=== PATIENT | female | born 1980 | race Caucasian/White ===

== ENCOUNTER 2017-01-24 14:43 | Emergency (ER) | payer MEDICAID ==
[2017-01-24] MEDS ORDERED: IPRATROPIUM/ALBUTEROL 3 ML DEYVIAL ONE (15:13)
--- NOTE | 2017-01-24 15:17 | EDPHY ---
H & P Stated Complaint: lower throat pain breathing and swalling - Personal History LMP (Females 10-55): 1-7 Days Ago Current Tetanus/Diphtheria Vaccine: Yes Current Tetanus Diphtheria and Acellular Pertussis (TDAP): Yes Tetanus Vaccine Date: 2013 - Medical/Surgical History Hx Asthma: No Hx Chronic Respiratory Disease: No Hx Diabetes: No Hx Cardiac Disease: No Hx Renal Disease: No Hx Cirrhosis: No Hx Alcoholism: No Hx HIV/AIDS: No Hx Splenectomy or Spleen Trauma: No Other PMH: PMH:HYPERPARATHYROID,PREV HEAD INJURY. UNILATERAL VESTIBULAR DYSFUNCTION. SINUS SURGERY, lymphacytic colitis - Social History Smoking Status: Never smoked Time Seen by Provider: 01/24/17 15:04 HPI/ROS: CHIEF COMPLAINT: "My throat hurts and I can't breath" HISTORY OF PRESENT ILLNESS: 36-year-old female with no history of chronic respiratory issues complaining 1 day of odynophagia, dyspnea. She has describes the pain in her throat/neck is feeling is if it is in the more cephalad portion of her throat. She went to urgent care facility today and was given prescription for antibiotics told symptoms may be secondary to epiglottitis an told to go to the ER for evaluation. She arrives via private vehicle stating that after going to the Urgent Care she ran some errands, noticed that her symptoms continued and came to the ER. She denies: Fever, chills, nuchal rigidity, foreign body sensation, chest pain, back pain, abdominal pain, exogenous estrogen use, cigarette use, vasculopathy history. REVIEW OF SYSTEMS: A ten point review of systems was performed and is negative with the exception of the items mentioned in the HPI PAST MEDICAL & SURGICAL HISTORY: Lymphocytic colitis. Hyperparathyroid. SOCIAL HISTORY:nonsmoker . No cocaine use. PHYSICAL EXAM (Prior to examination, patient consented to physical exam, hands were washed and my usual and customary physical exam procedures followed) 1) GENERAL: Well-developed, well-nourished, alert and oriented. Appears anxious . Sitting upright not in a tripod position, speaking full sentences and appears comfortable. 2) HEAD: Normocephalic, atraumatic 3) HEENT: Pupils equal, round, reactive to light bilaterally. Sclera anicteric. Nasopharynx, oropharynx, clear, no lesions. No tonsillar enlargement. No erythema of the posterior oropharynx. No trismus no drooling. No crepitus. No hot potato voice. No visible abnormality. Ears bilaterally with normal tympanic membranes. 4) NECK: Full range of motion, no meningeal signs. 5) LUNGS: Clear auscultation bilaterally, no wheezes, no rhonchi, no retractions. 6) HEART: Regular rate and rhythm, no murmur, no heave, no gallop. 7) ABDOMEN: No guarding, no rebound, no focal tenderness, 8) MUSCULOSKELETAL: Moving all extremities, no focal areas of tenderness, no obvious trauma. No peripheral edema or discoloration. 9) BACK: no visual or palpable abnormality. 10) SKIN: No rash, no petechiae. 11) Psychiatric: Patient is oriented X 3, there is no agitation. DIFFERENTIAL DIAGNOSIS: in no particular order including but not limited to epiglottitis, foreign body, pulmonary embolus (Hugh Kee) Constitutional: Initial Vital Signs Temperature (C) 36.7 C 01/24/17 14:48 Heart Rate 76 01/24/17 14:48 Respiratory Rate 17 01/24/17 14:48 Blood Pressure 115/88 H 01/24/17 14:48 O2 Sat (%) 96 01/24/17 14:48 O2 Delivery Mode Room Air Allergies/Adverse Reactions: Sulfa (Sulfonamide Antibiotics) Allergy (Intermediate, Verified 01/24/17 14:48) Hives Home Medications: Medication Instructions Recorded Albuterol [Proventil Inhaler HFA 1 - 2 puffs IH Q4PRN PRN #1 mdi 01/24/17 (*)] Budesonide 01/24/17 Medical Decision Making - Diagnostics Imaging Results: Images reviewed by myself (Hugh Kee) ED Course/Re-evaluation: Patient was re-evaluated with serial examinations was recently at 4:25 four twenty five p.m..Care and management in consultation with [secondary] supervising physician Dr Doan . We reviewed the x-rays and diagnostic studies. I think that pulmonary embolus less than likely in presence of negative D-dimer, not tachycardic or tachypneic and lack of other risk factors , negative perc score. Doubt epiglottitis. Doubt pneumothorax. I think symptoms more than likely secondary to acute bronchitis. Given dose of oral Decadron in the ER and albuterol meter dose inhaler. Usual and customary URI precautions and instructions provided. (Hugh Kee) Other Provider: The patient wasevaluatedand managed by themidlevel provider. Idiscussed the patient's presentation and course with thephysicianassistantor nurse practitionerand agree with theevaluation. My co-signature indicates that I have reviewed this chart and I agree with the findings and plan of care as documented. I am the secondary supervisingphysician. (Sussy Doan) - Data Points Laboratory Results: Laboratory Results 01/24/17 15:20 01/24/17 15:20 Departure - Departure Disposition: Home, Routine, Self-Care Clinical Impression: Bronchitis Condition: Good Instructions: Acute Bronchitis (ED) Additional Instructions: You were examined in the emergency department today for upper respiratory infection (URI) like symptoms. While more URIs are caused by viral illnesses, we cannot always exclude the possibility of a bacterial infection that may require treatment with antibiotics. . Return to the emergency department immediately for change in breathing habits, change in voice, change in swallowing habits, change in mental status, or any other symptoms that concern you. Referrals: Ángela Velasquez [Primary Care Provider] - 2-3 days, call for appt. Prescriptions: Albuterol [Proventil Inhaler HFA (*)] 1 - 2 puffs IH Q4PRN PRN #1 mdi PRN Reason: Cough, Moderate
[2017-01-24 15:31] LABS: % IMMATURE GRANULYOCYTES 0.3 % (0.0-1.1); ABSOLUTE IMMATURE GRANULOCYTES 0.03 10^3/uL (0.00-0.10); ADD DIFF? NO; ADD MORPH? NO; ADD SCAN? NO; ATYPICAL LYMPHOCYTE FLAG 0 (0-99); FRAGMENT RBC FLAG 0 (0-99); HEMATOCRIT 45.7 % (38.0-47.0); HEMOGLOBIN 16.1 g/dL (12.6-16.3); LEFT SHIFT FLG 0 (0-99); LIPEMIA HEMOLYSIS FLAG 90 (0-99); MEAN CELL HEMOGLOBIN 33.6 pg (27.9-34.1); MEAN CELL HEMOGLOBIN CONCENTR. 35.2 g/dL (32.4-36.7); MEAN CELL VOLUME 95.4 fL (81.5-99.8); MEAN PLATELET VOLUME 9.4 fL (8.7-11.7); PLATELET CLUMPS FLAG 0 (0-99); PLATELET COUNT 206 10^3/uL (150-400); RED BLOOD CELL COUNT 4.79 10^6/uL (4.18-5.33); RED CELL DISTRIBUTION WIDTH 12.6 % (11.5-15.2)
[2017-01-24 15:43] LABS: ANION GAP 8 mEq/L (8-16); CARBON DIOXIDE 28 mEq/l (22-31); CHLORIDE 104 mEq/L (97-110); CREATININE 0.6 mg/dL (0.6-1.0); GLOMERULAR FILTRATION RATE > 60; GLUCOSE 83 mg/dL (70-100); POTASSIUM 4.1 mEq/L (3.5-5.2); SODIUM 140 mEq/L (134-144)
[2017-01-24] MEDS ORDERED: DEXAMETHASONE 10 MG/ML VIAL PO ONE (16:35)
[2017-01-24 16:51] VITALS: BP 102/73; PULSE 69; RESP 18; TEMP 98.4; O2SAT 98
== END 2017-01-24 16:49 | disposition home or self-care (01) ==
DX: J40 Bronchitis, not specified as acute or chronic (principal)

== ENCOUNTER 2017-09-01 17:09 | Inpatient (IN) | payer MEDICAID ==
--- NOTE | 2017-09-01 17:32 | EDPHY ---
H & P Stated Complaint: Was bit by dog 8 days ago on hand;on antibx for it;today red streak up arm - Personal History LMP (Females 10-55): Now Current Tetanus Diphtheria and Acellular Pertussis (TDAP): Yes Tetanus Vaccine Date: 2013 - Medical/Surgical History Hx Asthma: No Hx Chronic Respiratory Disease: No Hx Diabetes: No Hx Cardiac Disease: No Hx Renal Disease: No Hx Cirrhosis: No Hx Alcoholism: No Hx HIV/AIDS: No Hx Splenectomy or Spleen Trauma: No Other PMH: PMH:HYPERPARATHYROID,PREV HEAD INJURY. UNILATERAL VESTIBULAR DYSFUNCTION. SINUS SURGERY, lymphacytic colitis - Social History Smoking Status: Never smoked Time Seen by Provider: 09/01/17 17:18 HPI/ROS: CHIEF COMPLAINT: Dog bite left hand HISTORY OF PRESENT ILLNESS: 37-year-old immunocompetent female with up-to-date tetanus states that 7 days ago she was bitten by a dog on her left hand, subsequently seen at [facility], started on Augmentin. She notes that in the past few days she has had progressive lymphangitic streaking up her left arm with new left axillary tenderness and adenopathy, subjective fever at home. No nausea or vomiting. REVIEW OF SYSTEMS: A ten point review of systems was performed and is negative with the exception of the items mentioned in the HPI PAST MEDICAL & SURGICAL HISTORY: No history of immunocompromised or suppressed conditions. Tetanus up-to-date SOCIAL HISTORY: Nonsmoker PHYSICAL EXAM (Prior to examination, patient consented to physical exam, hands were washed and my usual and customary physical exam procedures followed) 1) GENERAL: Well-developed, well-nourished, alert and oriented. Appears nontoxic. 2) HEAD: Normocephalic, atraumatic 3) HEENT: Pupils equal, round, reactive to light bilaterally. Sclera anicteric. 4) NECK: Full range of motion, no meningeal signs. 5) LUNGS: Clear auscultation bilaterally, no wheezes, no rhonchi, no retractions. 6) HEART: Regular rate and rhythm, no murmur, no heave, no gallop. 7) ABDOMEN: No guarding, no rebound, no focal tenderness, 8) MUSCULOSKELETAL: Left upper extremity: Left hand overlying the 5th metacarpal dorsal aspect well granulating wound with halo erythema no crepitus. No fetid odor. Negative kanavel sign to the fingers. Patient has lymphangitic streaking extending to her axilla. No crepitus. 9) BACK: No visual or palpable abnormality. 10) SKIN: No rash, no petechiae. 11) Psychiatric: Patient is oriented X 3, there is no agitation. DIFFERENTIAL DIAGNOSIS: In no particular include but limited to necrotizing fasciitis, dog bite cellulitis, necrotizing myositis (Hugh Kee) Constitutional: Initial Vital Signs Temperature (C) 36.7 C 09/01/17 17:10 Heart Rate 78 09/01/17 17:10 Respiratory Rate 18 09/01/17 17:10 Blood Pressure 101/75 09/01/17 17:10 O2 Sat (%) 95 09/01/17 17:10 O2 Delivery Mode Room Air Allergies/Adverse Reactions: Sulfa (Sulfonamide Antibiotics) Allergy (Intermediate, Verified 09/01/17 17:13) Hives Home Medications: Medication Instructions Recorded Budesonide 01/24/17 Amox Tr/K Clav (Augmentin) 1 each PO 09/01/17 [Augmentin 500/125 MG TAB (*)] Medical Decision Making - Diagnostics Imaging Results: Imaging Impressions Hand X-Ray 09/01/17 18:07 Impression: Negative for fracture. Images reviewed by myself (Hugh Kee) ED Course/Re-evaluation: I have reviewed the details of the case with Phil Kee. This patient is failing maximal outpatient therapy. I am concerned about the progression of her cellulitis with lymphangitis and now positive axillary lymph nodes. We will admit the patient for IV ertapenem and consult Infectious Disease and potentially hand surgery. (Antonio Levine) This patient has failed outpatient treatment for dog bite left hand. Recommended admission. I think given IV ertapenem. Does not meet sepsis criteria. She is agreeable with this. Doubt necrotizing fasciitis. 6:40 p.m. consultation with hospitalist Dr. Moody who will admit patient , recommended adding vancomycin in addition to her Dipentum (Hugh Kee) - Data Points Laboratory Results: Laboratory Results 09/01/17 17:36 09/01/17 17:36 09/01/17 09/01/17 09/01/17 17:36 17:36 17:36 WBC 8.38 10^3/uL 10^3/uL (3.80-9.50) RBC 4.85 10^6/uL 10^6/uL (4.18-5.33) Hgb 16.5 g/dL H g/dL (12.6-16.3) Hct 46.0 % % (38.0-47.0) MCV 94.8 fL fL (81.5-99.8) MCH 34.0 pg pg (27.9-34.1) MCHC 35.9 g/dL g/dL (32.4-36.7) RDW 12.0 % % (11.5-15.2) Plt Count 214 10^3/uL 10^3/uL (150-400) MPV 9.3 fL fL (8.7-11.7) Neut % (Auto) 73.5 % % (39.3-74.2) Lymph % (Auto) 19.8 % % (15.0-45.0) [place] % (Auto) 6.1 % % (4.5-13.0) Eos % (Auto) 0.1 % L % (0.6-7.6) Baso % (Auto) 0.4 % % (0.3-1.7) Nucleat RBC Rel Count 0.0 % % (0.0-0.2) Absolute Neuts (auto) 6.16 10^3/uL 10^3/uL (1.70-6.50) Absolute Lymphs (auto) 1.66 10^3/uL 10^3/uL (1.00-3.00) Absolute Monos (auto) 0.51 10^3/uL 10^3/uL (0.30-0.80) Absolute Eos (auto) 0.01 10^3/uL L 10^3/uL (0.03-0.40) Absolute Basos (auto) 0.03 10^3/uL 10^3/uL (0.02-0.10) Absolute Nucleated RBC 0.00 10^3/uL 10^3/uL (0-0.01) Immature Gran % 0.1 % % (0.0-1.1) Immature Gran # 0.01 10^3/uL 10^3/uL (0.00-0.10) VBG Lactic Acid Sodium 142 mEq/L mEq/L (134-144) Potassium 3.6 mEq/L mEq/L (3.5-5.2) Chloride 102 mEq/L mEq/L (97-110) Carbon Dioxide 26 mEq/l mEq/l (22-31) Anion Gap 14 mEq/L mEq/L (8-16) BUN 14 mg/dL mg/dL (7-23) Creatinine 0.8 mg/dL mg/dL (0.6-1.0) Estimated GFR > 60 Glucose 109 mg/dL H mg/dL (70-100) Calcium 11.0 mg/dL H mg/dL (8.5-10.4) Phosphorus 3.4 mg/dL mg/dL (2.5-4.5) Beta HCG, Qual NEGATIVE 09/01/17 17:36 WBC RBC Hgb Hct MCV MCH MCHC RDW Plt Count MPV Neut % (Auto) Lymph % (Auto) [place] % (Auto) Eos % (Auto) Baso % (Auto) Nucleat RBC Rel Count Absolute Neuts (auto) Absolute Lymphs (auto) Absolute Monos (auto) Absolute Eos (auto) Absolute Basos (auto) Absolute Nucleated RBC Immature Gran % Immature Gran # VBG Lactic Acid 1.2 mmol/L mmol/L (0.7-2.1) Sodium Potassium Chloride Carbon Dioxide Anion Gap BUN Creatinine Estimated GFR Glucose Calcium Phosphorus Beta HCG, Qual Medications Given: Discontinued Medications Ertapenem (Invanz) 1 gm IVP EDNOW ONE PRN Reason: Protocol Stop: 09/01/17 17:43 Last Admin: 09/01/17 18:09 Dose: 1 gm Departure - Departure Disposition: [facility] Clinical Impression: Dog bite cellulitis Condition: Fair
[2017-09-01] MEDS ORDERED: ERTAPENEM 1 GM VIAL IVP ONE (17:42)
[2017-09-01 17:45] LABS: % IMMATURE GRANULYOCYTES 0.1 % (0.0-1.1); ABSOLUTE IMMATURE GRANULOCYTES 0.01 10^3/uL (0.00-0.10); ADD DIFF? NO; ADD MORPH? NO; ADD SCAN? NO; ATYPICAL LYMPHOCYTE FLAG 0 (0-99); FRAGMENT RBC FLAG 0 (0-99); HEMOGLOBIN 16.5 g/dL (12.6-16.3); LEFT SHIFT FLG 0 (0-99); LIPEMIA HEMOLYSIS FLAG 90 (0-99); MEAN CELL HEMOGLOBIN CONCENTR. 35.9 g/dL (32.4-36.7); MEAN CELL VOLUME 94.8 fL (81.5-99.8); MEAN PLATELET VOLUME 9.3 fL (8.7-11.7); PLATELET CLUMPS FLAG 10 (0-99); PLATELET COUNT 214 10^3/uL (150-400); RED BLOOD CELL COUNT 4.85 10^6/uL (4.18-5.33)
[2017-09-01 18:06] LABS: ANION GAP 14 mEq/L (8-16); CARBON DIOXIDE 26 mEq/l (22-31); CHLORIDE 102 mEq/L (97-110); CREATININE 0.8 mg/dL (0.6-1.0); GLOMERULAR FILTRATION RATE > 60; GLUCOSE 109 mg/dL (70-100); POTASSIUM 3.6 mEq/L (3.5-5.2); SODIUM 142 mEq/L (134-144)
[2017-09-01] MEDS ORDERED: VANCOMYCIN HCL/NORMAL SALINE 250 ML IV ONE (18:40)
[2017-09-01] MEDS ORDERED: diphenhydrAMINE 25 MG CAP PO PRN (20:39)
[2017-09-01] MEDS ORDERED: ACETAMINOPHEN 325 MG TAB PO PRN (22:29)
[2017-09-01] MEDS ORDERED: ONDANSETRON 4 MG/2 ML VIAL IVP PRN (22:29)
[2017-09-01] MEDS ORDERED: ONDANSETRON DISINTEGRATING 4 MG TAB PO PRN (22:29)
[2017-09-01] MEDS ORDERED: oxyCODONE IR 5 MG TAB PO PRN (22:29)
[2017-09-01] MEDS: AMPICILLIN/SULBACTAM 3 GM in NS 100 ML IV SCH (23:41)
--- NOTE | 2017-09-02 00:10 | PDGENHP ---
History and Physical - Chief Complaint Hand/arm pain - History of Present Illness 37 yo F w/ hx of well control lymphocytic colitis presents with hand/arm pain and redness. She suffered a dog bite last Friday. She received cristóbal Augmentin that she started taking on Friday and has taken for 6 days. She states her L lateral hand wound (site of bite) has improved since but today she developed redness and streaking up her medial L arm to her axilla. This is why she presented to the ED. She denies any decreased ROM or sensation in her hand. Additionally, she has not experienced any fevers or systemic symptoms of infection. History Information - Allergies/Home Medication List Allergies/Adverse Reactions: Sulfa (Sulfonamide Antibiotics) Allergy (Intermediate, Verified 09/01/17 17:13) Hives Home Medications: Budesonide [Entocort EC] 6 - 9 mg PO DAILY 01/24/17 [Last Taken 09/01/17 07:00] AMOXICILLIN TRIHYDRATE [Amoxil] 875 mg PO BID 09/01/17 [Last Taken 09/01/17 07: 00] Herbals/Supplements -Info Only 1 ea PO DAILY 09/01/17 [Last Taken 09/01/17 07:00 ] Vitamin B Complex [B Complex] 1 tab PO DAILY 09/01/17 [Last Taken 09/01/17 07:00 ] I have personally reviewed and updated: family history, medical history - Past Medical History no pertinent PMH Additional medical history: Lymphocytic colitis, well controlled - Surgical History Reports: no pertinent surgical hx - Family History Additional family history: Asked, denies - Social History Smoking Status: Never smoked Review of Systems Review of Systems: ROS: 10pt was reviewed & negative except for what was stated in HPI & below Physical Exam Physical Exam: Temp Pulse Resp BP Pulse Ox 36.8 C 68 16 93/60 L 95 09/01/17 23:36 09/01/17 23:36 09/01/17 23:36 09/01/17 23:36 09/01/17 23:36 Constitutional: no apparent distress, not in pain Eyes: PERRL, EOMI Ears, Nose, Mouth, Throat: moist mucous membranes, no oral mucosal ulcers Cardiovascular: regular rate and rhythym, no murmur, rub, or gallop Respiratory: no respiratory distress, clear to auscultation Gastrointestinal: normoactive bowel sounds, soft, non-tender abdomen Skin: warm, erythema (Healing wound (2x3 cm) lateral L hand with mild erythematous streaking up medial L arm), other (Flushing noted in face and neck) Musculoskeletal: full muscle strength, no muscle tenderness, normal joint ROM Neurologic: AAOx3, CN II-XII Intact Psychiatric: interacting appropriately, not anxious Lab Data & Imaging Review 09/01/17 17:36 09/01/17 17:36 WBC 8.38 10^3/uL (3.80-9.50) 09/01/17 17:36 RBC 4.85 10^6/uL (4.18-5.33) 09/01/17 17:36 Hgb 16.5 g/dL (12.6-16.3) H 09/01/17 17:36 Hct 46.0 % (38.0-47.0) 09/01/17 17:36 MCV 94.8 fL (81.5-99.8) 09/01/17 17:36 MCH 34.0 pg (27.9-34.1) 09/01/17 17:36 MCHC 35.9 g/dL (32.4-36.7) 09/01/17 17:36 RDW 12.0 % (11.5-15.2) 09/01/17 17:36 Plt Count 214 10^3/uL (150-400) 09/01/17 17:36 MPV 9.3 fL (8.7-11.7) 09/01/17 17:36 Neut % (Auto) 73.5 % (39.3-74.2) 09/01/17 17:36 Lymph % (Auto) 19.8 % (15.0-45.0) 09/01/17 17:36 [place] % (Auto) 6.1 % (4.5-13.0) 09/01/17 17:36 Eos % (Auto) 0.1 % (0.6-7.6) L 09/01/17 17:36 Baso % (Auto) 0.4 % (0.3-1.7) 09/01/17 17:36 Nucleat RBC Rel Count 0.0 % (0.0-0.2) 09/01/17 17:36 Absolute Neuts (auto) 6.16 10^3/uL (1.70-6.50) 09/01/17 17:36 Absolute Lymphs (auto) 1.66 10^3/uL (1.00-3.00) 09/01/17 17:36 Absolute Monos (auto) 0.51 10^3/uL (0.30-0.80) 09/01/17 17:36 Absolute Eos (auto) 0.01 10^3/uL (0.03-0.40) L 09/01/17 17:36 Absolute Basos (auto) 0.03 10^3/uL (0.02-0.10) 09/01/17 17:36 Absolute Nucleated RBC 0.00 10^3/uL (0-0.01) 09/01/17 17:36 Immature Gran % 0.1 % (0.0-1.1) 09/01/17 17:36 Immature Gran # 0.01 10^3/uL (0.00-0.10) 09/01/17 17:36 VBG Lactic Acid 1.2 mmol/L (0.7-2.1) 09/01/17 17:36 Sodium 142 mEq/L (134-144) 09/01/17 17:36 Potassium 3.6 mEq/L (3.5-5.2) 09/01/17 17:36 Chloride 102 mEq/L (97-110) 09/01/17 17:36 Carbon Dioxide 26 mEq/l (22-31) 09/01/17 17:36 Anion Gap 14 mEq/L (8-16) 09/01/17 17:36 BUN 14 mg/dL (7-23) 09/01/17 17:36 Creatinine 0.8 mg/dL (0.6-1.0) 09/01/17 17:36 Estimated GFR > 60 09/01/17 17:36 Glucose 109 mg/dL (70-100) H 09/01/17 17:36 Calcium 11.0 mg/dL (8.5-10.4) H 09/01/17 17:36 Phosphorus 3.4 mg/dL (2.5-4.5) 09/01/17 17:36 Beta HCG, Qual NEGATIVE 09/01/17 17:36 Imaging Review: Unremarkable XR of L hand. Assessment & Plan Assessment: 37 yo F w/ hx of lymphocytic colitis presents with cellulitis and lymphangitis after dog bit 1 week ago. Plan: 1. LUE cellulitis, lymphangitis s/p dog bite - Site of bite on L hand has improved while on Augmentin but developed LUE lymphangitis on day of admission. She denies any loss of ROM or sensation in L hand. She also denies any systemic symptoms of infection. Of note, she had significant itching, flushing, and erythema from initial dose of Vancomycin given in ED. - Will proceed with IV Unasyn noting reaction to Vancomycin - Blood cultures ordered - Noting good appearance of hand and intact ROM, sensation doubt she needs hand surgical consult 2. Lymphocytic colitis - On budesonide; reports this is well controlled. Diet - Regular Code - Full Ppx - Low risk Dispo - Admit to observation status
[2017-09-02 06:31] LABS: % IMMATURE GRANULYOCYTES 0.4 % (0.0-1.1); ABSOLUTE IMMATURE GRANULOCYTES 0.03 10^3/uL (0.00-0.10); ADD DIFF? NO; ADD MORPH? NO; ADD SCAN? NO; ATYPICAL LYMPHOCYTE FLAG 10 (0-99); FRAGMENT RBC FLAG 0 (0-99); HEMATOCRIT 42.4 % (38.0-47.0); HEMOGLOBIN 15.1 g/dL (12.6-16.3); LEFT SHIFT FLG 0 (0-99); LIPEMIA HEMOLYSIS FLAG 90 (0-99); MEAN CELL HEMOGLOBIN 34.2 pg (27.9-34.1); MEAN CELL HEMOGLOBIN CONCENTR. 35.6 g/dL (32.4-36.7); MEAN CELL VOLUME 96.1 fL (81.5-99.8); MEAN PLATELET VOLUME 9.8 fL (8.7-11.7); PLATELET CLUMPS FLAG 0 (0-99); PLATELET COUNT 198 10^3/uL (150-400); RED BLOOD CELL COUNT 4.41 10^6/uL (4.18-5.33); RED CELL DISTRIBUTION WIDTH 12.1 % (11.5-15.2)
[2017-09-02 06:35] LABS: ANION GAP 8 mEq/L (8-16); CALCIUM 9.4 mg/dL (8.5-10.4); CARBON DIOXIDE 27 mEq/l (22-31); CHLORIDE 107 mEq/L (97-110); CREATININE 0.7 mg/dL (0.6-1.0); GLOMERULAR FILTRATION RATE > 60; GLUCOSE 78 mg/dL (70-100); POTASSIUM 3.8 mEq/L (3.5-5.2); SODIUM 142 mEq/L (134-144)
[2017-09-02] MEDS: AMPICILLIN/SULBACTAM 3 GM in NS 100 ML IV SCH ×4 (08:09→23:55)
--- NOTE | 2017-09-02 11:01 | ASMTCASEMG ---
Living Arrangements What is your living Answers: With Partner arrangement? Who do you live with? Type Of Residence What kind of residence do Answers: House you live in? Discharge Plan Comments Coordination Status Comments Notes: Pt is a 37 y/o female admitted for hand and arm pain. Pt suffered a dog bite last Friday. Anticipates that pt will d/c independent when medically stable w/ supportive partner. CM available for changes. Plan: Independent Date Signed: 09/02/2017 11:01 AM Electronically Signed By:NERY Moser
[2017-09-02] MEDS: BUDESONIDE 3 MG EC CAP PO SCH (12:16)
[2017-09-02] MEDS: VITAMIN B COMPLEX 1 EA CAP/TAB PO SCH (12:16)
--- NOTE | 2017-09-02 13:52 | HOSPPROG ---
Hospitalist Progress Note Assessment/Plan: DIAGNOSES: -cellulitis after dog bite, now with development of lymphangitic streaking while on antibiotics -she was not getting better as an outpatient Augmentin but she was getting only 500 mg dose twice daily which is probably insufficient -last night in the ER she was given Invanz and vancomycin, and has started on Unasyn this morning. She seems notably improved today but it is not possible at this time for me to determine if she is getting better because of higher doses of medicine with the IV, or whether she actually needed the vancomycin. This is probably an infection from the dogs oral waylon and I think Unasyn and Augmentin will be adequate to treat as long she is getting high enough doses. Will continue the Unasyn for now and follow-up. She may be able to go home On higher doses of Augmentin tomorrow SUBJECTIVE: Notices improvement in pain and decrease in the redness of the lymphangitis streaking, no chills or sweats, no nausea eating well OBJECTIVE Vitals reviewed: Stable without fever Color Stripper, my review: Exam: alert oriented skin warm dry color ok; the wounds on her hand her healing nicely and I can find no evidence of abscess or drainage or tissue compromise at this time. Lymphangitis streak is still visible but much paler in color, still with some tenderness no progression of cellulitis in fact cellulitis around the 1 hand wound has decreased resps not labored lungs clear BSs heart regular abd soft nondistended nontender, bowel sounds present limbs warm, no edema iv site ok Lab data: White blood cell count remains normal and CBC and chemistry overall remained normal Microbiology: Cultures at this time remain without growth Objective: Vital Signs Temp Pulse Resp BP Pulse Ox 36.9 C 77 15 93/70 L 96 09/02/17 11:13 09/02/17 11:13 09/02/17 11:13 09/02/17 11:13 09/02/17 11:13 Laboratory Results 09/02/17 04:48 09/02/17 04:48 ICD10 Worksheet Patient Problems: Problems Problem Status Onset Cellulitis Acute - ICD10 Problem Qualifiers (1) Cellulitis
[2017-09-02 19:11] VITALS: RESP 16
[2017-09-03] MEDS: AMPICILLIN/SULBACTAM 3 GM in NS 100 ML IV SCH (05:57)
[2017-09-03 07:59] VITALS: BP 89/59; PULSE 70; TEMP 98.6; O2SAT 95
[2017-09-03] MEDS: BUDESONIDE 3 MG EC CAP PO SCH (08:13)
[2017-09-03] MEDS: VITAMIN B COMPLEX 1 EA CAP/TAB PO SCH (08:18)
--- NOTE | 2017-09-03 08:37 | PDDCSUM ---
Discharge Summary Discharge Summary: DISCHARGE DIAGNOSES: -cellulitis after dog bite; worsening despite outpatient antibiotics, now improving with increase in therapy HOSPITAL COURSE SUMMARY: This patient had suffered a dog bite approximately 6 days before admission. She had been seen elsewhere and started on Augmentin 500 mg tablets. She initially did well but then started having fevers worsening cellulitis of the hand and in lymphangitic streaking of the arm. The patient presented to the hospital. Blood cultures were obtained but did not grow an organism. There was no evidence of abscess, or soft tissue necrosis or compromise. She was started on IV Unasyn and responded quite well to this. Her lymphangitic streaking has all but resolved, the cellulitis is notably decreased, and the original wound seems to be healing nicely. At this point she is stable to discharge to home. Her dose at 875 mg. PENDING TEST RESULTS: Final results of blood cultures are still pending MEDICATION CHANGES: Augmentin 875 mg twice daily FOLLOW-UP PLAN: With Dr. Velasquez in 4 days
--- NOTE | 2017-09-04 17:57 | ASDISCHSUM ---
Discharge Information Plan Status:Home with No Needs Medically Cleared to Leave: Discharge Date:09/03/2017 09:41 AM CM D/C Disposition: ADT D/C Disposition:Home, Routine, Self-Care Projected Discharge Date:09/03/2017 09:41 AM Transportation at D/C: Discharge Delay Reason: Follow-Up Date:09/03/2017 09:41 AM Discharge Slot: Final Diagnosis: Placement Information Patient Contact Information Contact Name:VALERIE Relationship:Life Partner Address:[address] Work Phone: City:[place] Alternate Phone: State/Zip Code:[place] [address] Email: Financial Information Financial Class: Primary Plan Desc:[employer] [place] Primary Plan Number:[id number] Secondary Plan Desc: Secondary Plan Number: Assessment Information [facility] Initial CM Assessment Living Arrangements What is your living Answers: With Partner arrangement? Who do you live with? Type Of Residence What kind of residence do Answers: House you live in? Discharge Plan Comments Coordination Status Comments Notes: Pt is a 37 y/o female admitted for hand and arm pain. Pt suffered a dog bite last Friday. Anticipates that pt will d/c independent when medically stable w/ supportive partner. CM available for changes. Plan: Independent Date Signed: 09/02/2017 11:01 AM Electronically Signed By:NERY Moser Intervention Information
== END 2017-09-03 09:41 | disposition home or self-care (01) | DRG 603 ==
LOC: F3E 20:00 → OBSVTOIN 09-02 21:42
PROVIDERS: ADMIT Internal Medicine; ATTEND Internal Medicine
DX: L03.114 Cellulitis of left upper limb (principal); K52.832 Lymphocytic colitis
CPT/HCPCS: 96374; G0378; J0295; J1200; J1335; J3370

== ENCOUNTER 2017-09-05 13:25 | Emergency (ER) | payer MEDICAID ==
[2017-09-05 13:31] VITALS: PULSE 69
[2017-09-05] MEDS ORDERED: NS 1,000 ML IV ONE (13:54)
--- NOTE | 2017-09-05 14:02 | EDPHY ---
General - History Smoking Status: Never smoked Narrative: CHIEF COMPLAINT: "not getting better" HISTORY OF PRESENT ILLNESS: Patient reports that she had a dog bite to the hand 12 days ago. She was admitted to the hospital on the and discharged home the next day. She was discharged home on Augmentin. She is taking Augmentin but, but she reports that she is feeling worse today. Her symptoms are vague and difficult for her to describe. They include nausea, dizziness, malaise and "I just don't feel well." She has no chest pain. No shortness of breath. No cough. No headache or neck pain. No abdominal pain. Nausea but no vomiting. No fever chills. No body aches. She has ongoing left upper extremity pain and may have worsened. She saw her primary care physician today. She wrote a prescription for Levaquin , for the patient to start on Friday. She recommended the patient present to the emergency department if her symptoms do not improve soon. No other associated complaints or modifying factors REVIEW OF SYSTEMS: Ten systems reviewed and are negative unless otherwise noted in the HPI PCP: Dr. Velasquez SPECIALISTS: Dr. Woodson PAST MEDICAL HISTORY: Lymphocytic colitis on daily steroid PAST SURGICAL HISTORY: With some tooth extraction, sinus surgery 12 years SOCIAL HISTORY: Nonsmoker. No alcohol use. Works as a personal lines agent, EMT and bicycle mechanic FAMILY HISTORY: Noncontributory EXAMINATION General Appearance: Alert, no distress Head: normocephalic, atraumatic Eyes: Pupils equal and round, no conjunctival pallor or injection ENT, Mouth: Mucous membranes moist. Airway patent. No erythema or edema Neck: Normal inspection, supple, non-tender. Painless range of motion all planes Respiratory: Lungs are clear to auscultation. No wheezing rhonchi or crackles Cardiovascular: Regular rate and rhythm. No murmur. Sick radial pulses 2+. Gastrointestinal: Abdomen is soft and nontender. No tympany. No rigidity. No guarding distention Neurological: A&O, nonfocal, normal gait. Strength is symmetric in the upper extremities. No wrist drop. Skin: Warm and dry, no rash. No Petechiae or purpura. There is mild ecchymosis on the left upper extremity in the region of previous lymphangitis. There is a wound to the left hand on the dorsum the does have granulation tissue with no surrounding cellulitis. Extremities: Moderate tenderness of the left upper extremity in the brachium and forearm. No pitting edema. Range of motion of the upper extremities is symmetric. Psychiatric: Mood and affect normal DIFFERENTIAL DIAGNOSES: Including but not limited to lymphangitis, cellulitis, influenza, DVT MDM: 1:55 p.m. Ongoing left arm pain and generalized malaise and fatigue with lightheadedness and no improvement of her overall symptoms. Patient does not have any fever or chest pain. No shortness of breath. No cough. Wound appears to be healing. She has difficulty delineating her complaints and I do not appreciate any significant findings on exam. She does have moderate pain in the left lower extremity, thus I have ordered ultrasound to rule out DVT given her recent hospitalization. She is in no acute distress. Laboratory studies ordered. 2:20 p.m. Case discussed with Dr. Valverde 2:55 p.m. Laboratory studies are negative, but there is mild hemoconcentration. He has already received 1 L IV fluid. Doppler study is currently being performed 3:20 p.m. Notified by radiologist Dr. Solomon. Ultrasound of the left upper extremity is negative for DVT. 3:25 p.m. Patient re-evaluated. She is feeling better. We had a very long discussion regarding the nature of her symptoms and the possibility that this is simply prolonged symptoms given her immune suppression. We also discussed possibility of other viral etiology. At this time she is in no acute distress. Her vital signs are within normal limits. She has no signs of worsening infection, but rather her wound appears well to me. I recommend that she contact her primary care physician to discuss outpatient management early next week. She is comfortable this plan and discharged home stable condition. SUPERVISION: Patient was evaluated and examined in conjunction with my secondary supervising physician as documented. We have both examined the patient. EKG interpretation: Dr. Valverde Normal rhythm. No ischemia (Dave Ashby) Discussion: PHYSICIAN DOCUMENTATION: The patient was evaluated and managed by the Physician Land Leasing Information Clerk and myself. I have reviewed the chart and agree with the findings and plan of care as documented. In addition, I examined the patient myself at 1505. History confirmed as recent hospitalization for infected bite, currently on Augmentin. Physical findings as follows: Left arm compartments are soft, no lymphangitis, wound has granulation tissue but does not look acutely cellulitic. Patient's history is confirmed as being on budesonide, discussed with her that her recovery being prolonged may be due to the fact that she is on chronic oral steroids. I am the secondary supervising physician. (Obie Valverde) - Objective Vital Signs: Initial Vital Signs Temperature (C) 97.7 F 09/05/17 13:27 Heart Rate 69 09/05/17 13:27 Respiratory Rate 18 09/05/17 13:27 Blood Pressure 132/83 H 09/05/17 13:27 O2 Sat (%) 95 09/05/17 13:27 O2 Delivery Mode Room Air Allergies/Adverse Reactions: Sulfa (Sulfonamide Antibiotics) Allergy (Intermediate, Verified 09/01/17 17:13) Hives Home Medications: Medication Instructions Recorded Budesonide [Entocort EC] 6 - 9 mg PO DAILY 01/24/17 Herbals/Supplements -Info Only 1 ea PO DAILY 09/01/17 Vitamin B Complex [B Complex] 1 tab PO DAILY 09/01/17 Amoxicillin/Clavulanate Pot 875 mg PO BID #10 tab 09/03/17 [Augmentin 875 MG TAB (*)] Laboratory Results: Laboratory Results 09/05/17 14:25 09/05/17 14:25 09/05/17 09/05/17 09/05/17 14:25 14:25 14:25 WBC 6.78 10^3/uL 10^3/uL (3.80-9.50) RBC 5.22 10^6/uL 10^6/uL (4.18-5.33) Hgb 17.8 g/dL H g/dL (12.6-16.3) Hct 49.6 % H % (38.0-47.0) MCV 95.0 fL fL (81.5-99.8) MCH 34.1 pg pg (27.9-34.1) MCHC 35.9 g/dL g/dL (32.4-36.7) RDW 11.9 % % (11.5-15.2) Plt Count 223 10^3/uL 10^3/uL (150-400) MPV 9.3 fL fL (8.7-11.7) Neut % (Auto) 77.0 % H % (39.3-74.2) Lymph % (Auto) 16.2 % % (15.0-45.0) [place] % (Auto) 5.8 % % (4.5-13.0) Eos % (Auto) 0.3 % L % (0.6-7.6) Baso % (Auto) 0.4 % % (0.3-1.7) Nucleat RBC Rel Count 0.0 % % (0.0-0.2) Absolute Neuts (auto) 5.22 10^3/uL 10^3/uL (1.70-6.50) Absolute Lymphs (auto) 1.10 10^3/uL 10^3/uL (1.00-3.00) Absolute Monos (auto) 0.39 10^3/uL 10^3/uL (0.30-0.80) Absolute Eos (auto) 0.02 10^3/uL L 10^3/uL (0.03-0.40) Absolute Basos (auto) 0.03 10^3/uL 10^3/uL (0.02-0.10) Absolute Nucleated RBC 0.00 10^3/uL 10^3/uL (0-0.01) Immature Gran % 0.3 % % (0.0-1.1) Immature Gran # 0.02 10^3/uL 10^3/uL (0.00-0.10) Sodium 140 mEq/L mEq/L (134-144) Potassium 4.3 mEq/L mEq/L (3.5-5.2) Chloride 102 mEq/L mEq/L (97-110) Carbon Dioxide 25 mEq/l mEq/l (22-31) Anion Gap 13 mEq/L mEq/L (8-16) BUN 11 mg/dL mg/dL (7-23) Creatinine 0.8 mg/dL mg/dL (0.6-1.0) Estimated GFR > 60 Glucose 82 mg/dL mg/dL (70-100) Calcium 10.5 mg/dL H mg/dL (8.5-10.4) Lipase 78 IU/L IU/L (23-300) Beta HCG, Qual NEGATIVE Medications Given: Discontinued Medications Sodium Chloride (Ns) 1,000 mls @ 0 mls/hr IV EDNOW ONE; Wide Open PRN Reason: Protocol Stop: 09/05/17 13:55 Last Admin: 12/15/17 14:30 Dose: 1,000 mls Departure - Departure Disposition: Home, Routine, Self-Care Clinical Impression: Dog bite Qualifiers: Encounter type: initial encounter Qualified Code(s): W54.0XXA - Bitten by dog, initial encounter Pain, upper extremity Qualifiers: Laterality: left Qualified Code(s): M79.602 - Pain in left arm Condition: Good Instructions: Arm Pain (ED), Animal Bite (ED) Additional Instructions: 1. Contact her primary care physician 2. ED precautions as discussed Referrals: Ángela Velasquez [Primary Care Provider] - As per Instructions
--- NOTE | 2017-09-05 14:12 | CPEKG ---
Heart Rate: 75 RR Interval: 800 P-R Interval: 144 QRSD Interval: 80 QT Interval: 384 QTC Interval: 429 P [place]: 72 QRS [place]: -10 T Wave [place]: 37 EKG Severity - NORMAL ECG - EKG Impression: SINUS RHYTHM Electronically Signed By: Obie Valverde 05-Sep-2017 15:42:39
[2017-09-05 14:38] LABS: % IMMATURE GRANULYOCYTES 0.3 % (0.0-1.1); ABSOLUTE IMMATURE GRANULOCYTES 0.02 10^3/uL (0.00-0.10); ADD DIFF? NO; ADD MORPH? NO; ADD SCAN? NO; ATYPICAL LYMPHOCYTE FLAG 0 (0-99); FRAGMENT RBC FLAG 0 (0-99); HEMATOCRIT 49.6 % (38.0-47.0); HEMOGLOBIN 17.8 g/dL (12.6-16.3); LEFT SHIFT FLG 0 (0-99); LIPEMIA HEMOLYSIS FLAG 90 (0-99); MEAN CELL HEMOGLOBIN 34.1 pg (27.9-34.1); MEAN CELL HEMOGLOBIN CONCENTR. 35.9 g/dL (32.4-36.7); MEAN PLATELET VOLUME 9.3 fL (8.7-11.7); PLATELET CLUMPS FLAG 0 (0-99); PLATELET COUNT 223 10^3/uL (150-400); RED BLOOD CELL COUNT 5.22 10^6/uL (4.18-5.33); RED CELL DISTRIBUTION WIDTH 11.9 % (11.5-15.2)
[2017-09-05 14:47] LABS: ANION GAP 13 mEq/L (8-16); CALCIUM 10.5 mg/dL (8.5-10.4); CARBON DIOXIDE 25 mEq/l (22-31); CHLORIDE 102 mEq/L (97-110); CREATININE 0.8 mg/dL (0.6-1.0); GLOMERULAR FILTRATION RATE > 60; GLUCOSE 82 mg/dL (70-100); POTASSIUM 4.3 mEq/L (3.5-5.2); SODIUM 140 mEq/L (134-144)
[2017-09-05 15:20] VITALS: BP 97/65; RESP 16; O2SAT 97
[2017-09-05 16:03] VITALS: TEMP 97.9
== END 2017-09-05 15:55 | disposition home or self-care (01) ==
DX: S41.152D Open bite of left upper arm, subsequent encounter (principal); E86.9 Volume depletion, unspecified; W54.0XXD Bitten by dog, subsequent encounter

== ENCOUNTER 2018-09-22 09:34 | Emergency (ER) | payer MEDICAID, OTHER ==
[2018-09-22] MEDS ORDERED: NS 1,000 ML IV ONE (09:53)
--- NOTE | 2018-09-22 10:07 | EDPHY ---
H & P Stated Complaint: fever, cough, called from to say likely pna Time Seen by Provider: 09/22/18 09:43 HPI/ROS: CHIEF COMPLAINT: Fever, cough, URI symptoms HISTORY OF PRESENT ILLNESS: 38-year-old immunocompetent female with no influenza vaccination this season complaining of 5 days of URI and flu-like symptoms. Was seen at urgent care yesterday with chest x-ray showed possible early pneumonia, negative influenza testing, discharged with azithromycin which he has been taking as prescribed, told that she developed fever to go to the ER. She is complaining of fevers which developed overnight. She she is also complaining of new onset dysuria and increased frequency which developed the past 2 days. No back or flank pain. No PRIMARY CARE PROVIDER: REVIEW OF SYSTEMS: 10 systems reviewed and negative with the exception of the elements mentioned in the history of present illness PAST MEDICAL & SURGICAL HISTORY: no influenza vaccination SOCIAL HISTORY: Nonsmoker PHYSICAL EXAM (Prior to examination, patient consented to physical exam, hands were washed and my usual and customary physical exam procedures followed) 1) GENERAL: Well-developed, well-nourished, alert and oriented. Appears nontoxic. 2) HEAD: Normocephalic, atraumatic 3) HEENT: Pupils equal, round, reactive to light bilaterally. Sclera anicteric. Nasopharynx, oropharynx, clear, no lesions. Moist mucous membranes. No tonsillar enlargement or exudate Ears bilaterally with normal tympanic membranes. No signs of otitis media otitis externa 4) NECK: Full range of motion, no meningeal signs. 5) LUNGS: Clear auscultation bilaterally, no wheezes, no rhonchi, no retractions. Breathing comfortably 6) HEART: Regular rate and rhythm, no murmur, no heave, no gallop. 7) ABDOMEN: No guarding, no rebound, no focal tenderness, negative McBurney's, negative Chairez's, negative Rovsing's, negative peritoneal sign, 8) MUSCULOSKELETAL: Moving all extremities, no focal areas of tenderness, no obvious trauma. No peripheral edema or discoloration. 9) BACK: No CVA tenderness, no midline vertebral tenderness, no fluctuance, no step-off, no obvious trauma, no visual or palpable abnormality. 10) SKIN: No rash, no petechiae. 11) Psychiatric: Patient is oriented X 3, there is no agitation. DIFFERENTIAL DIAGNOSIS: In no particular order including but not limited to influenza, pneumonia, bronchitis - Personal History LMP (Females 10-55): 22-28 Days Ago Tetanus Vaccine Date: 2013 - Medical/Surgical History Hx Asthma: No Hx Chronic Respiratory Disease: No Hx Diabetes: No Hx Cardiac Disease: No Hx Renal Disease: No Hx Cirrhosis: No Hx Alcoholism: No Hx HIV/AIDS: No Hx Splenectomy or Spleen Trauma: No Other PMH: PMH:HYPERPARATHYROID, colitis - Social History Smoking Status: Never smoked Constitutional: Initial Vital Signs Temperature (C) 36.7 C 09/22/18 09:38 Heart Rate 96 09/22/18 09:38 Respiratory Rate 18 09/22/18 09:38 Blood Pressure 101/58 L 09/22/18 09:38 O2 Sat (%) 97 09/22/18 09:38 O2 Delivery Mode Room Air Allergies/Adverse Reactions: Sulfa (Sulfonamide Antibiotics) Allergy (Intermediate, Verified 09/01/17 17:13) Hives Home Medications: Medication Instructions Recorded Azithromycin 09/22/18 Budesonide 180 Mcg INH 09/22/18 Cephalexin [Keflex] 500 mg PO BID 7 Days cap 09/22/18 Medical Decision Making - Diagnostics Imaging Results: Imaging Impressions Chest X-Ray 09/22/18 09:46 Impression: Left lower lobe atelectasis versus early pneumonia. Images reviewed myself ED Course/Re-evaluation: 10:07 a.m.: Patient is maintain normal saturations lungs clear bilaterally. She does note new urinary complaints. Will obtain urine sample. Regarding her current azithromycin, I think that this is an appropriate treatment should she have community-acquired pneumonia. She has been on this for 1 dose I do not think that changing antibiotics indicated at this time. From supportive care standpoint I recommended IV fluids and rechecking a influenza swab and chest x- ray. He is agreeable with this plan. Care of patient under supervision of secondary supervising physician Dr Coyle . 11:44a.m.: Re-evaluation, patient has received IV fluids, feeling improvement. Reviewed her chest x-ray shows possible early pneumonia left lower lobe as well as urinalysis showing pyuria , bacteriuria, positive leukocytes. We discussed transitioning the patient to Levaquin to provide coverage for pulmonary and urinary waylon however she expresses concerns given the physical nature of her job, notably currently in the [employer], concerns over tendinopathy with fluoroquinolones. We therefore discussed continue patient azithromycin and adding Keflex. At this time I do not anticipate hospitalization is the patient is otherwise healthy, maintain normal saturations , I believe her to have decision-making capacity and able to care for herself. Nonetheless I offered admission and she agrees she think she can be discharged. Discussed this with her and she feels comfortable being discharged.. Given my usual and customary discharge precautions instructions. - Data Points Laboratory Results: Laboratory Results 09/22/18 10:00 09/22/18 10:00 09/22/18 09/22/18 09/22/18 10:00 10:00 10:00 WBC RBC Hgb Hct MCV MCH MCHC RDW Plt Count MPV Neut % (Auto) Lymph % (Auto) [place] % (Auto) Eos % (Auto) Baso % (Auto) Nucleat RBC Rel Count Absolute Neuts (auto) Absolute Lymphs (auto) Absolute Monos (auto) Absolute Eos (auto) Absolute Basos (auto) Absolute Nucleated RBC Immature Gran % Immature Gran # Sodium 140 mEq/L mEq/L (135-145) Potassium 3.9 mEq/L mEq/L (3.5-5.2) Chloride 106 mEq/L mEq/L (97-110) Carbon Dioxide 25 mEq/l mEq/l (22-31) Anion Gap 9 mEq/L mEq/L (6-14) BUN 10 mg/dL mg/dL (7-23) Creatinine 0.6 mg/dL mg/dL (0.6-1.0) Estimated GFR > 60 Glucose 88 mg/dL mg/dL (70-100) Calcium 10.2 mg/dL mg/dL (8.5-10.4) Beta HCG, Qual NEGATIVE Urine Color Urine Appearance Urine pH Ur Specific [place] Urine Protein Urine Ketones Urine Blood Urine Nitrate Urine Bilirubin Urine Urobilinogen Ur Leukocyte Esterase Urine RBC Urine WBC Ur Epithelial Cells Urine Bacteria Urine Mucus Urine Glucose Nasal Influenza A PCR NEGATIVE FOR FLU A (NEGATIVE) Nasal Influenza B PCR NEGATIVE FOR FLU B (NEGATIVE) 09/22/18 09/22/18 10:00 09:53 WBC 9.33 10^3/uL 10^3/uL (3.80-9.50) RBC 4.91 10^6/uL 10^6/uL (4.18-5.33) Hgb 16.3 g/dL g/dL (12.6-16.3) Hct 47.7 % H % (38.0-47.0) MCV 97.1 fL fL (81.5-99.8) MCH 33.2 pg pg (27.9-34.1) MCHC 34.2 g/dL g/dL (32.4-36.7) RDW 12.3 % % (11.5-15.2) Plt Count 171 10^3/uL 10^3/uL (150-400) MPV 9.3 fL fL (8.7-11.7) Neut % (Auto) 79.2 % H % (39.3-74.2) Lymph % (Auto) 11.4 % L % (15.0-45.0) [place] % (Auto) 8.8 % % (4.5-13.0) Eos % (Auto) 0.1 % L % (0.6-7.6) Baso % (Auto) 0.2 % L % (0.3-1.7) Nucleat RBC Rel Count 0.0 % % (0.0-0.2) Absolute Neuts (auto) 7.39 10^3/uL H 10^3/uL (1.70-6.50) Absolute Lymphs (auto) 1.06 10^3/uL 10^3/uL (1.00-3.00) Absolute Monos (auto) 0.82 10^3/uL H 10^3/uL (0.30-0.80) Absolute Eos (auto) 0.01 10^3/uL L 10^3/uL (0.03-0.40) Absolute Basos (auto) 0.02 10^3/uL 10^3/uL (0.02-0.10) Absolute Nucleated RBC 0.00 10^3/uL 10^3/uL (0-0.01) Immature Gran % 0.3 % % (0.0-1.1) Immature Gran # 0.03 10^3/uL 10^3/uL (0.00-0.10) Sodium Potassium Chloride Carbon Dioxide Anion Gap BUN Creatinine Estimated GFR Glucose Calcium Beta HCG, Qual Urine Color YELLOW Urine Appearance HAZY Urine pH 6.0 (5.0-7.5) Ur Specific [place] 1.010 (1.002-1.030) Urine Protein NEGATIVE (NEGATIVE) Urine Ketones NEGATIVE (NEGATIVE) Urine Blood 3+ H (NEGATIVE) Urine Nitrate NEGATIVE (NEGATIVE) Urine Bilirubin NEGATIVE (NEGATIVE) Urine Urobilinogen NEGATIVE EU EU (0.2-1.0) Ur Leukocyte Esterase 2+ H (NEGATIVE) Urine RBC 50-182 /hpf H /hpf (0-3) Urine WBC 50-182 /hpf H /hpf (0-3) Ur Epithelial Cells TRACE /lpf /lpf (NONE-1+) Urine Bacteria TRACE /hpf H /hpf (NONE SEEN) Urine Mucus TRACE /lpf /lpf (NONE-1+) Urine Glucose NEGATIVE (NEGATIVE) Nasal Influenza A PCR Nasal Influenza B PCR Medications Given: Discontinued Medications Sodium Chloride (Ns) 1,000 mls @ 0 mls/hr IV ONCE ONE PRN Reason: Wide Open Stop: 09/22/18 09:54 Last Admin: 09/22/18 10:07 Dose: 1,000 mls Departure - Departure Disposition: Home, Routine, Self-Care Clinical Impression: Pneumonia Qualifiers: Pneumonia type: due to unspecified organism Laterality: left Lung location: lower lobe of lung Qualified Code(s): J18.1 - Lobar pneumonia, unspecified organism Urinary tract infection Qualifiers: Urinary tract infection type: acute cystitis Hematuria presence: with hematuria Qualified Code(s): N30.01 - Acute cystitis with hematuria Condition: Good Instructions: Urinary Tract Infection in Women (ED), Bacterial Pneumonia (ED) Additional Instructions: Return to the ER immediately if you experience fevers/chills, flu like symptoms , inability to tolerate oral intake, nausea or vomiting, or any other symptoms that concern you. Referrals: [facility],. [Clinic] - 2-3 days, call for appt. Prescriptions: Cephalexin [Keflex] 500 mg PO BID 7 Days cap
[2018-09-22 10:21] LABS: PLATELET COUNT 171 10^3/uL (150-400)
[2018-09-22 11:12] VITALS: BP 107/71
== END 2018-09-22 12:03 | disposition home or self-care (01) ==
DX: J18.1 Lobar pneumonia, unspecified organism (principal); E21.3 Hyperparathyroidism, unspecified; D84.9 Immunodeficiency, unspecified; Z88.2 Allergy status to sulfonamides

== ENCOUNTER → 2018-09-25 | Outpatient (CLI) | payer OTHER | LOC: BMCIMAGING 15:03 | PROVIDERS: ATTEND Family Medicine | DX: R06.02 Shortness of breath (principal); R05 Cough; J18.1 Lobar pneumonia, unspecified organism ==

== ENCOUNTER → 2018-11-17 | Outpatient (CLI) | payer OTHER | LOC: BMCIMAGING 10:15 ==